=== PATIENT | male | born 1965 | race Caucasian/White ===

== ENCOUNTER 2023-12-09 16:07 | Emergency (ER) | payer SELFPAY | END 2023-12-09 17:09 | disposition home or self-care (01) | LOC: MW.ED 16:07 | DX: E11.9 Type 2 diabetes mellitus without complications; Z76.0 Encounter for issue of repeat prescription | CPT/HCPCS: 82947; 99283 ==

== ENCOUNTER 2023-12-09 19:44 | Emergency (ER) | payer OTHER ==
[2023-12-09] MEDS: Sodium Chloride 0.9% 1,000 ML IV ONE ×2 (19:56→20:14)
[2023-12-09] MEDS: Ondansetron 4 MG/2 ML SDV IVPUSH ONE (19:57)
[2023-12-09] MEDS: Ketorolac 30 MG/ML SDV IVPUSH ONE (19:57)
[2023-12-09 20:11] LABS: BASE EXCESS VENOUS 2.4 (-2.0-3.0); PH,VENOUS 7.37 (7.31-7.41)
[2023-12-09 20:14] LABS: BASOPHILS ABSOLUTE AUTO 0.09 K/uL (0.00-0.20); EOSINOPHILS ABSOLUTE AUTO 0.19 K/uL (0.00-0.45); EOSINOPHILS PERCENT AUTO 2.2 % (0.0-6.0); HEMATOCRIT 46.1 % (42.0-52.0); HEMOGLOBIN 16.3 g/dL (14.0-18.0); IMMATURE GRAN ABSOLUTE AUTO 0.02 K/uL (0.00-0.05); IMMATURE GRAN PERCENT AUTO 0.2 % (0.0-0.4); LYMPHOCYTES ABSOLUTE AUTO 2.81 K/uL (1.00-4.80); LYMPHOCYTES PERCENT AUTO 32.4 % (24.0-44.0); MEAN CORPUSCULAR HEMOGLOBIN 29.9 pg (28.0-32.0); MEAN CORPUSCULAR HGB CONC 35.4 g/dL (32.0-36.0); MEAN CORPUSCULAR VOLUME 84.4 fL (83.0-99.0); MEAN PLATELET VOLUME 9.6 fL (9.4-12.4); MONOCYTES ABSOLUTE AUTO 0.97 K/uL (0.00-0.80); MONOCYTES PERCENT AUTO 11.2 % (0.0-8.0); NEUTROPHILS ABSOLUTE AUTO 4.59 K/uL (1.80-7.70); PLATELET COUNT,PLT 268 K/uL (150-400); RED BLOOD CELL COUNT 5.46 M/uL (4.52-5.90); WHITE BLOOD CELL COUNT,WBC 8.67 K/uL (3.9-11.3)
[2023-12-09 20:44] LABS: A/G RATIO 0.8 (0.9-1.6); ALBUMIN 3.3 g/dL (3.4-5.0); CALCIUM 9.4 mg/dL (8.5-10.1); CREATININE 1.4 mg/dL (0.8-1.3); EST CRCL DRUG DOSING (CG) 74.72 mL/min; MAGNESIUM 1.9 mg/dL (1.8-2.4); POTASSIUM,K 4.9 mmol/L (3.5-5.1); PROTEIN TOTAL,TP 7.3 g/dL (6.4-8.2)
[2023-12-09] MEDS: Insulin Regular, Human 100 Units/ML 10 ML Vial IVPUSH ONE (21:21)
== END 2023-12-09 22:30 ==
LOC: MW.ED 19:44
DX: E11.65 Type 2 diabetes mellitus with hyperglycemia (principal); Z79.899 Other long term (current) drug therapy; Z86.19 Personal history of other infectious and parasitic diseases; Z75.8 Other problems related to medical facilities and other health care
CPT/HCPCS: 36415; 80053; 82009; 82803; 82947; 83690; 83735; 84484; 85025; 96361; 96374; 96375; 99283; J1815; J1885; J2405; J7030; 99284